=== PATIENT | female | born 1950 | race African-American/Black ===

== ENCOUNTER 2021-09-11 19:37 | Observation (INO) ==
[2021-09-11 21:08] LABS: Basophils # 0.1 10*3/uL (0.0-0.2); Basophils % 0.5 % (0.0-0.8); Eosinophils # 0.1 10*3/uL (0.0-0.87); Eosinophils % 0.5 % (0.00-10.9); Hematocrit 35.3 VOL% (35.7-47.0); Hemoglobin 10.6 GM/DL (12.0-16.0); Immature Granulocytes % 0.6 %; Immature Granulocytes Absolute 0.07 #; Lymphocytes # 1.1 10*3/uL (1.4-4.0); Lymphocytes % 10.1 % (21.3-54.2); Mean Corpuscular Volume 86.7 FL (87-102); Mean Platelet Volume 10.7 FL (9.6-12.0); Monocytes % 5.3 % (1.7-12.7); Platelet Count 381 T/CUMM (130-400); Red Blood Count 4.07 MC/CUMM (3.8-5.5); Red Cell Distribution Width 15.3 % (9.3-17.3)
[2021-09-11 21:23] LABS: Alanine Aminotransferase 26 U/L (13-56); Albumin 3.3 G/DL (3.4-5.0); Alkaline Phosphatase 89 U/L (45-117); Aspartate Amino Transferase 22 U/L (0-37); Bilirubin,Total < 0.39 MG/DL (0.20-1.00); Blood Urea Nitrogen 17 MG/DL (7-18); Calcium 9.5 MG/DL (8.5-10.1); Carbon Dioxide 29 MMOL/L (21-32); Estimated Glom Filtration Rate 101 ML/MIN; Glucose 140 MG/DL (74-106); Osmolality,Calculated 282.4 MOS/KG (273-304); Potassium 3.8 MMOL/L (3.5-5.1); Sodium 140 MMOL/L (136-145); Total Protein 8.2 G/DL (6.4-8.2)
[2021-09-11 22:11] LABS: Bacteria,Urine Occasional /HPF (Few); Bilirubin,Urine Negative (Negative); Blood, Urine Negative (Negative); Glucose,Urine (UA) Negative (Negative); Ketones,Urine Negative (Negative); Mucus,Urine Occasional /LPF (Occasional); Nitrite,Urine Negative (Negative); Protein,Urine 30 MG/DL; RBC,Urine 2 /HPF (0-4); Squamous Epithelial Cell,Urine Occasional /HPF (0-10); Urine Appearance Slightly Hazy (Clear); Urine Color Yellow (Yellow); Urine Specific Gravity 1.021 (1.001-1.035); Urine Urobilinogen < 2.0 EU/DL (0.2-1.0)
[2021-09-11] MEDS ORDERED: DEXTROSE 50% 25 GM/50 ML VIAL IV PRN ×2 (23:04)
[2021-09-11] MEDS ORDERED: ACETAMINOPHEN 325 MG TABLET PO PRN (23:04)
[2021-09-11] MEDS ORDERED: guaiFENesin/DM ER 600-30 MG TABLET PO PRN (23:04)
[2021-09-11] MEDS ORDERED: diphenhydrAMINE CAP 25 MG CAPSULE PO PRN (23:04)
[2021-09-11] MEDS ORDERED: hydrALAZINE 20 MG/1 ML VIAL IV PRN (23:04)
[2021-09-11] MEDS ORDERED: GLUCAGON 1 MG VIAL IM PRN ×2 (23:04)
[2021-09-11] MEDS ORDERED: NICOTINE 21 MG/24 HR PATCH TRANSDERM PRN (23:04)
[2021-09-11] MEDS: ONDANSETRON 4 MG/2 ML VIAL IV PRN (23:50)
[2021-09-11] MEDS: MORPHINE 2 MG/1 ML SYRINGE IV PRN (23:50)
[2021-09-12] MEDS: ZALEPLON 5 MG CAPSULE PO PRN (03:30)
[2021-09-12 07:10] LABS: Basophils % 0.4 % (0.0-0.8); Eosinophils # 0.1 10*3/uL (0.0-0.87); Hematocrit 33.6 VOL% (35.7-47.0); Hemoglobin 10.3 GM/DL (12.0-16.0); Immature Granulocytes % 0.5 %; Immature Granulocytes Absolute 0.05 #; Lymphocytes # 1.6 10*3/uL (1.4-4.0); Lymphocytes % 14.2 % (21.3-54.2); Mean Corpuscular HGB Conc 30.7 GM/DL (32-36); Mean Platelet Volume 11.9 FL (9.6-12.0); Monocytes % 6.4 % (1.7-12.7); Neutrophils % 77.5 % (38.7-73.9); Platelet Count 350 T/CUMM (130-400); Red Blood Count 3.86 MC/CUMM (3.8-5.5); Red Cell Distribution Width 15.3 % (9.3-17.3); White Blood Count 10.9 T/CUMM (4-12)
[2021-09-12 07:38] LABS: Calcium 9.2 MG/DL (8.5-10.1); Osmolality,Calculated 280.4 MOS/KG (273-304); Potassium 3.5 MMOL/L (3.5-5.1)
[2021-09-12] MEDS: INSULIN LISPRO 100 UNIT/ML SUBCUT SCH ×3 (07:47→16:11)
[2021-09-12] MEDS ORDERED: VALSARTAN 160 MG TABLET PO SCH (09:00)
[2021-09-12] MEDS ORDERED: amLODIPine 10 MG TABLET PO SCH (09:00)
[2021-09-12] MEDS ORDERED: cloNIDine 0.1 MG TABLET PO SCH (09:00)
[2021-09-12] MEDS: PANTOPRAZOLE 40 MG TABLET PO SCH (09:10)
[2021-09-12] MEDS: HEPARIN 5,000 UNIT/1 ML VIAL SUBCUT SCH ×2 (09:19→21:08)
[2021-09-12] MEDS: BISACODYL 5 MG TABLET PO SCH (10:55)
[2021-09-12] MEDS: MORPHINE 2 MG/1 ML SYRINGE IV PRN (12:00)
[2021-09-12] MEDS: ONDANSETRON 4 MG/2 ML VIAL IV PRN (12:01)
[2021-09-12] MEDS ORDERED: FLUTICASONE 50 MCG NASAL SPRAY 16 GM BOTTLE BOTH NARES PRN (13:55)
[2021-09-12] MEDS ORDERED: MECLIZINE 25 MG TABLET PO PRN (13:55)
[2021-09-12] MEDS ORDERED: ALBUTEROL 2.5 MG/3 ML NEB RESP TX PRN (14:10)
[2021-09-12] MEDS: CITALOPRAM 20 MG TABLET PO SCH (15:48)
[2021-09-12] MEDS: GABAPENTIN 300 MG CAPSULE PO SCH ×2 (15:49→21:09)
[2021-09-12] MEDS: FUROSEMIDE 20 MG TABLET PO SCH (15:50)
[2021-09-12] MEDS: METHOCARBAMOL 750 MG TABLET PO PRN (18:23)
[2021-09-12] MEDS: SIMVASTATIN 20 MG TABLET PO SCH (21:09)
[2021-09-12] MEDS: metFORMIN 500 MG TABLET PO SCH (21:09)
[2021-09-13] MEDS: INSULIN LISPRO 100 UNIT/ML SUBCUT SCH ×5 (05:29→23:05)
[2021-09-13] MEDS ORDERED: ERGOCALCIFEROL 50,000 UNIT CAPSULE PO SCH (09:00)
[2021-09-13] MEDS ORDERED: AMILORIDE PO SCH (09:00)
[2021-09-13] MEDS ORDERED: NON-FORMULARY MEDICATION (Omeprazole 40 mg capsule,delayed release(DR/EC)) PO SCH (09:00)
[2021-09-13] MEDS ORDERED: HCTZ PO SCH (09:00)
[2021-09-13] MEDS: CITALOPRAM 20 MG TABLET PO SCH (10:29)
[2021-09-13] MEDS: HEPARIN 5,000 UNIT/1 ML VIAL SUBCUT SCH ×2 (10:29→21:19)
[2021-09-13] MEDS: POTASSIUM CHLORIDE 20 MEQ TABLET PO SCH (10:30)
[2021-09-13] MEDS: PANTOPRAZOLE 40 MG TABLET PO SCH (10:30)
[2021-09-13] MEDS: FUROSEMIDE 20 MG TABLET PO SCH (10:30)
[2021-09-13] MEDS: metFORMIN 500 MG TABLET PO SCH ×2 (10:30→21:20)
[2021-09-13] MEDS: LOSARTAN 50 MG TABLET PO SCH (10:30)
[2021-09-13] MEDS: GABAPENTIN 300 MG CAPSULE PO SCH ×3 (10:30→21:21)
[2021-09-13] MEDS: amLODIPine 10 MG TABLET PO SCH (10:30)
[2021-09-13] MEDS: BISACODYL 5 MG TABLET PO SCH (10:30)
[2021-09-13] MEDS: METHOCARBAMOL 750 MG TABLET PO PRN (16:07)
[2021-09-13] MEDS: ZALEPLON 5 MG CAPSULE PO PRN (21:20)
[2021-09-13] MEDS: SIMVASTATIN 20 MG TABLET PO SCH (21:21)
[2021-09-14 06:54] LABS: Basophils # 0.1 10*3/uL (0.0-0.2); Basophils % 0.7 % (0.0-0.8); Eosinophils # 0.3 10*3/uL (0.0-0.87); Eosinophils % 2.3 % (0.00-10.9); Hemoglobin 10.1 GM/DL (12.0-16.0); Immature Granulocytes % 0.6 %; Immature Granulocytes Absolute 0.06 #; Lymphocytes # 1.8 10*3/uL (1.4-4.0); Lymphocytes % 16.4 % (21.3-54.2); Mean Corpuscular HGB Conc 29.7 GM/DL (32-36); Mean Corpuscular Volume 87.4 FL (87-102); Mean Platelet Volume 11.6 FL (9.6-12.0); Monocytes % 7.9 % (1.7-12.7); Neutrophils % 72.1 % (38.7-73.9); Platelet Count 296 T/CUMM (130-400); Red Blood Count 3.89 MC/CUMM (3.8-5.5); Red Cell Distribution Width 15.4 % (9.3-17.3); White Blood Count 10.7 T/CUMM (4-12)
[2021-09-14 07:23] LABS: Calcium 9.1 MG/DL (8.5-10.1); Osmolality,Calculated 279.5 MOS/KG (273-304); Potassium 3.4 MMOL/L (3.5-5.1)
[2021-09-14] MEDS: INSULIN LISPRO 100 UNIT/ML SUBCUT SCH ×4 (08:15→20:56)
[2021-09-14] MEDS: BISACODYL 5 MG TABLET PO SCH (11:08)
[2021-09-14] MEDS: LOSARTAN 50 MG TABLET PO SCH (11:08)
[2021-09-14] MEDS: metFORMIN 500 MG TABLET PO SCH ×2 (11:08→20:55)
[2021-09-14] MEDS: CITALOPRAM 20 MG TABLET PO SCH (11:08)
[2021-09-14] MEDS: HEPARIN 5,000 UNIT/1 ML VIAL SUBCUT SCH ×2 (11:09→20:55)
[2021-09-14] MEDS: GABAPENTIN 300 MG CAPSULE PO SCH ×3 (11:09→20:55)
[2021-09-14] MEDS: POTASSIUM CHLORIDE 20 MEQ TABLET PO SCH (11:09)
[2021-09-14] MEDS: amLODIPine 10 MG TABLET PO SCH (11:09)
[2021-09-14] MEDS: FUROSEMIDE 20 MG TABLET PO SCH (11:09)
[2021-09-14] MEDS: PANTOPRAZOLE 40 MG TABLET PO SCH (11:09)
[2021-09-14] MEDS: guaiFENesin 200 MG/10 ML UDCUP PO PRN (16:30)
[2021-09-14] MEDS: SIMVASTATIN 20 MG TABLET PO SCH (20:59)
[2021-09-15] MEDS: INSULIN LISPRO 100 UNIT/ML SUBCUT SCH ×4 (08:01→20:56)
[2021-09-15] MEDS: guaiFENesin 200 MG/10 ML UDCUP PO PRN ×2 (09:32→21:38)
[2021-09-15] MEDS: GABAPENTIN 300 MG CAPSULE PO SCH ×3 (09:32→20:30)
[2021-09-15] MEDS: LOSARTAN 50 MG TABLET PO SCH ×2 (09:33→09:34)
[2021-09-15] MEDS: CITALOPRAM 20 MG TABLET PO SCH (09:33)
[2021-09-15] MEDS: FUROSEMIDE 20 MG TABLET PO SCH (09:33)
[2021-09-15] MEDS: PANTOPRAZOLE 40 MG TABLET PO SCH (09:34)
[2021-09-15] MEDS: POTASSIUM CHLORIDE 20 MEQ TABLET PO SCH (09:34)
[2021-09-15] MEDS: amLODIPine 10 MG TABLET PO SCH (09:34)
[2021-09-15] MEDS: HEPARIN 5,000 UNIT/1 ML VIAL SUBCUT SCH ×2 (09:35→20:31)
[2021-09-15] MEDS: metFORMIN 500 MG TABLET PO SCH ×2 (09:35→20:30)
[2021-09-15] MEDS: BISACODYL 5 MG TABLET PO SCH (10:46)
[2021-09-15] MEDS: METHOCARBAMOL 750 MG TABLET PO PRN (12:44)
[2021-09-15] MEDS: SIMVASTATIN 20 MG TABLET PO SCH (20:30)
[2021-09-16] MEDS: METHOCARBAMOL 750 MG TABLET PO PRN ×3 (03:31→20:12)
[2021-09-16 05:33] LABS: Basophils # 0.1 10*3/uL (0.0-0.2); Basophils % 0.7 % (0.0-0.8); Eosinophils # 0.3 10*3/uL (0.0-0.87); Eosinophils % 3.2 % (0.00-10.9); Hematocrit 33.7 VOL% (35.7-47.0); Hemoglobin 10.3 GM/DL (12.0-16.0); Immature Granulocytes % 0.6 %; Immature Granulocytes Absolute 0.05 #; Lymphocytes # 1.3 10*3/uL (1.4-4.0); Lymphocytes % 14.5 % (21.3-54.2); Mean Corpuscular HGB Conc 30.6 GM/DL (32-36); Mean Corpuscular Volume 87.5 FL (87-102); Mean Platelet Volume 11.6 FL (9.6-12.0); Monocytes % 8.8 % (1.7-12.7); Neutrophils % 72.2 % (38.7-73.9); Platelet Count 293 T/CUMM (130-400); Red Blood Count 3.85 MC/CUMM (3.8-5.5); Red Cell Distribution Width 15.4 % (9.3-17.3); White Blood Count 8.8 T/CUMM (4-12)
[2021-09-16 06:02] LABS: Calcium 9.3 MG/DL (8.5-10.1); Osmolality,Calculated 277.7 MOS/KG (273-304); Potassium 3.5 MMOL/L (3.5-5.1)
[2021-09-16] MEDS: INSULIN LISPRO 100 UNIT/ML SUBCUT SCH ×4 (09:49→20:15)
[2021-09-16] MEDS: LOSARTAN 50 MG TABLET PO SCH (09:50)
[2021-09-16] MEDS: PANTOPRAZOLE 40 MG TABLET PO SCH (09:51)
[2021-09-16] MEDS: BISACODYL 5 MG TABLET PO SCH (09:51)
[2021-09-16] MEDS: POTASSIUM CHLORIDE 20 MEQ TABLET PO SCH (09:51)
[2021-09-16] MEDS: amLODIPine 10 MG TABLET PO SCH (09:51)
[2021-09-16] MEDS: metFORMIN 500 MG TABLET PO SCH ×2 (09:51→20:03)
[2021-09-16] MEDS: HEPARIN 5,000 UNIT/1 ML VIAL SUBCUT SCH ×2 (09:51→20:14)
[2021-09-16] MEDS: FUROSEMIDE 20 MG TABLET PO SCH (09:51)
[2021-09-16] MEDS: GABAPENTIN 300 MG CAPSULE PO SCH ×3 (09:51→20:03)
[2021-09-16] MEDS: CITALOPRAM 20 MG TABLET PO SCH (09:51)
[2021-09-16 12:54] LABS: Bilirubin,Urine Negative (Negative); Blood, Urine Negative (Negative); Glucose,Urine (UA) Negative (Negative); Ketones,Urine Negative (Negative); Mucus,Urine Occasional /LPF (Occasional); Nitrite,Urine Negative (Negative); Protein,Urine Negative; RBC,Urine <1 /HPF (0-4); Squamous Epithelial Cell,Urine Occasional /HPF (0-10); Urine Appearance CLEAR (Clear); Urine Color Yellow (Yellow); Urine Specific Gravity 1.017 (1.001-1.035); Urine Urobilinogen < 2.0 EU/DL (0.2-1.0)
[2021-09-16] MEDS: guaiFENesin 200 MG/10 ML UDCUP PO PRN (13:02)
[2021-09-16] MEDS: BENZONATATE 100 MG CAPSULE PO PRN (13:02)
[2021-09-16] MEDS ORDERED: TUBERCULIN SKIN TEST 0.1 ML SYRINGE INTRADERM ONE (13:27)
[2021-09-16] MEDS: SIMVASTATIN 20 MG TABLET PO SCH (20:03)
[2021-09-17 05:52] LABS: Basophils # 0.1 10*3/uL (0.0-0.2); Basophils % 0.7 % (0.0-0.8); Eosinophils # 0.2 10*3/uL (0.0-0.87); Eosinophils % 2.4 % (0.00-10.9); Hematocrit 33.2 VOL% (35.7-47.0); Hemoglobin 10.1 GM/DL (12.0-16.0); Immature Granulocytes % 0.6 %; Immature Granulocytes Absolute 0.05 #; Lymphocytes # 1.2 10*3/uL (1.4-4.0); Lymphocytes % 13.5 % (21.3-54.2); Mean Corpuscular HGB Conc 30.4 GM/DL (32-36); Mean Corpuscular Volume 87.1 FL (87-102); Monocytes % 8.2 % (1.7-12.7); Neutrophils % 74.6 % (38.7-73.9); Platelet Count 274 T/CUMM (130-400); Red Blood Count 3.81 MC/CUMM (3.8-5.5); Red Cell Distribution Width 15.3 % (9.3-17.3); White Blood Count 8.9 T/CUMM (4-12)
[2021-09-17 06:25] LABS: Calcium 9.1 MG/DL (8.5-10.1); Osmolality,Calculated 276.7 MOS/KG (273-304); Potassium 3.4 MMOL/L (3.5-5.1)
[2021-09-17] MEDS: INSULIN LISPRO 100 UNIT/ML SUBCUT SCH ×4 (08:57→20:45)
[2021-09-17] MEDS ORDERED: fentaNYL 100 MCG/2 ML VIAL ONE (12:17)
[2021-09-17] MEDS ORDERED: LIDOCAINE 2% 5 ML VIAL ONE (12:17)
[2021-09-17] MEDS ORDERED: propofoL 200 MG/20 ML VIAL IV ONE (12:17)
[2021-09-17] MEDS ORDERED: DEXAMETHASONE 10 MG/1 ML VIAL ONE (12:17)
[2021-09-17] MEDS ORDERED: LACTATED RINGERS 1,000 ML IV SCH (12:30)
[2021-09-17] MEDS: GABAPENTIN 300 MG CAPSULE PO SCH ×3 (14:22→20:39)
[2021-09-17] MEDS: POTASSIUM CHLORIDE 20 MEQ TABLET PO SCH (14:52)
[2021-09-17] MEDS: LOSARTAN 50 MG TABLET PO SCH (14:52)
[2021-09-17] MEDS: CITALOPRAM 20 MG TABLET PO SCH (14:52)
[2021-09-17] MEDS: FUROSEMIDE 20 MG TABLET PO SCH (14:52)
[2021-09-17] MEDS: BISACODYL 5 MG TABLET PO SCH (14:52)
[2021-09-17] MEDS: metFORMIN 500 MG TABLET PO SCH ×2 (14:52→20:40)
[2021-09-17] MEDS: MENTHOL/ZINC OXIDE OINT 71 GM JAR TOP SCH ×2 (14:53→22:24)
[2021-09-17] MEDS: PANTOPRAZOLE 40 MG TABLET PO SCH (14:53)
[2021-09-17] MEDS: amLODIPine 10 MG TABLET PO SCH (14:53)
[2021-09-17] MEDS: METHOCARBAMOL 750 MG TABLET PO PRN ×2 (16:22→20:40)
[2021-09-17] MEDS: guaiFENesin 200 MG/10 ML UDCUP PO PRN (17:53)
[2021-09-17] MEDS: SIMVASTATIN 20 MG TABLET PO SCH (20:40)
[2021-09-17] MEDS: HEPARIN 5,000 UNIT/1 ML VIAL SUBCUT SCH (20:46)
[2021-09-18] MEDS: INSULIN LISPRO 100 UNIT/ML SUBCUT SCH ×2 (07:27→10:29)
[2021-09-18 08:32] VITALS: BP 140/55
[2021-09-18] MEDS: amLODIPine 10 MG TABLET PO SCH (08:52)
[2021-09-18] MEDS: GABAPENTIN 300 MG CAPSULE PO SCH (08:52)
[2021-09-18] MEDS: BENZONATATE 100 MG CAPSULE PO PRN (08:52)
[2021-09-18] MEDS: FUROSEMIDE 20 MG TABLET PO SCH (08:52)
[2021-09-18] MEDS: metFORMIN 500 MG TABLET PO SCH (08:52)
[2021-09-18] MEDS: LOSARTAN 50 MG TABLET PO SCH (08:53)
[2021-09-18] MEDS: POTASSIUM CHLORIDE 20 MEQ TABLET PO SCH (08:53)
[2021-09-18] MEDS: CITALOPRAM 20 MG TABLET PO SCH (08:53)
[2021-09-18] MEDS: PANTOPRAZOLE 40 MG TABLET PO SCH (08:53)
[2021-09-18] MEDS: BISACODYL 5 MG TABLET PO SCH (08:55)
[2021-09-18] MEDS: HEPARIN 5,000 UNIT/1 ML VIAL SUBCUT SCH (08:56)
[2021-09-18] MEDS: MENTHOL/ZINC OXIDE OINT 71 GM JAR TOP SCH (08:56)
[2021-09-18] MEDS: METHOCARBAMOL 750 MG TABLET PO PRN (10:30)
== END 2021-09-18 11:01 ==
LOC: EDBD → EDUNIT# → N.ED 19:37 → N.EDINP 19:37 → SUATTDRO 23:04 → N.TELES 09-12 13:37 → N.2W 09-14 00:18
PROVIDERS: ADMIT Internal Medicine; ATTEND Internal Medicine